=== PATIENT | male | born 1970 | race Two or more races ===

== ENCOUNTER 2020-09-16 12:00 | Outpatient (CLI) | payer OTHER | END 2020-09-16 12:09 | disposition home or self-care (01) | LOC: RAD 12:00 | PROVIDERS: ATTEND Specialist | DX: M25.522 Pain in left elbow (principal); M25.532 Pain in left wrist; M25.512 Pain in left shoulder; S49.92XA Unspecified injury of left shoulder and upper arm, initial encounter ==